=== PATIENT | male | born 2000 | race African-American/Black ===

== ENCOUNTER 2024-03-01 12:46 | Emergency (ER) | payer OTHER, SELFPAY ==
[2024-03-01] MEDS ORDERED: Boostrix 0.5 ML (Tdap) VIAL (>/=7 yrs of age) ONE (13:17)
[2024-03-01] MEDS ORDERED: Bacitracin 1 PK ONE (13:17)
[2024-03-01] MEDS ORDERED: Lidocaine 1% w/Epinephrine 1:100K 20 ML VIAL ONE (14:17)
== END 2024-03-01 15:15 | disposition home or self-care (01) ==
LOC: ERS 12:46
DX: S51.811A Laceration without foreign body of right forearm, initial encounter (principal); X99.1XXA Assault by knife, initial encounter; Y93.89 Activity, other specified; Y92.009 Unspecified place in unspecified non-institutional (private) residence as the place of occurrence of the external cause; Z23 Encounter for immunization
CPT/HCPCS: 12002; 90471; 90715